=== PATIENT | male | born 1960 | race Caucasian/White ===

== ENCOUNTER 2019-04-24 15:30 | Emergency (ER) | payer OTHER ==
[2019-04-24] MEDS ORDERED: ONDANSETRON 4 MG/2 ML VIAL IVPUSH ONE (16:02)
--- NOTE | 2019-04-24 16:03 | PDOC ---
Rapid Medical Evaluation Time Seen by Provider: 04/24/19 16:00 Medical Evaluation: 04/24/19 16:00 HPI: Weak and Vomiting since yesterday PE: Slumped over in wheel chair with emesis bag ORDERS: Labs and Zofan Discharge Disposition - Diagnosis Nausea and vomiting - Referrals - Patient Instructions - Post Discharge Activity
[2019-04-24 16:05] VITALS: TEMP 98; BMI 27.8
[2019-04-24 17:03] LABS: BASO % 0.8 % (0-2.0); EOS % 2.3 % (0-4.5); HEMOGLOBIN 17.5 GM/dL (11.7-16.9); LYMPH % 20.6 % (8-40); MCH 31.9 pg (25.7-33.7); MCHC 34.3 g/dl (32.0-35.9); MONO % 7.6 % (3.8-10.2); NEUT % 68.7 % (42.8-82.8); PLATELET COUNT 226 K/MM3 (134-434); RBC 5.49 M/mm3 (4.00-5.60); RDW 13.9 % (11.9-15.9); WHITE BLOOD COUNT 8.7 K/mm3 (4.0-10.0)
[2019-04-24] MEDS ORDERED: FAMOTIDINE 20 MG/50 ML IVPB 20 MG/50 ML MG IVPB ONE ×2 (17:12→17:16)
[2019-04-24] MEDS ORDERED: SODIUM CHLORIDE 1,000 ML IV STA (17:12)
[2019-04-24] MEDS ORDERED: LACTATED RINGERS SOLUTION 1000 ML INFUS.BAG IV ONE (17:20)
[2019-04-24 17:31] LABS: ALBUMIN 4.1 g/dl (3.4-5.0); ALK PHOS 105 U/L (45-117); ANION GAP 14 MMOL/L (8-16); BILIRUBIN,TOTAL 0.9 mg/dL (0.2-1); BLOOD UREA NITROGEN 24.2 mg/dL (7-18); CHLORIDE 99 mmol/L (98-107); CO2 26 mmol/L (21-32); GLUCOSE,RANDOM 240 mg/dL (74-106); LIPASE 61 U/L (73-393); SGOT/AST 8 U/L (15-37); SGPT/ALT 20 U/L (13-61); SODIUM 138 mmol/L (136-145); TOT PROT 8.2 g/dl (6.4-8.2)
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
[2019-04-24 18:22] LABS: URINE APPEARANCE CLEAR; URINE BILIRUBIN NEGATIVE (NEGATIVE); URINE COLOR YELLOW; URINE GLUCOSE (UA) >=1000 (NEGATIVE); URINE KETONE 40 mg/dl (NEGATIVE); URINE NITRITE NEGATIVE (NEGATIVE); URINE PROTEIN 100 (NEGATIVE); URINE UROBILINOGEN 0.2 mg/dL (0.2-1.0)
[2019-04-24 18:23] LABS: URINE LEUK ESTERASE NEGATIVE (NEGATIVE)
[2019-04-24] MEDS ORDERED: METOCLOPRAMIDE HCL INJECTION 10 MG/2 ML VIAL IVPB ONE (18:34)
[2019-04-24] MEDS ORDERED: METOCLOPRAMIDE HCL INJECTION 10 MG/2 ML VIAL ONE (18:37)
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
[2019-04-24 20:53] VITALS: BP 149/81; PULSE 67
--- NOTE | 2019-04-25 10:27 | EKG ---
Test Reason : Blood Pressure : / mmHG Vent. Rate : 083 BPM Atrial Rate : 083 BPM P-R Int : 112 ms QRS Dur : 098 ms QT Int : 404 ms P-R-T Axes : 037 063 070 degrees QTc Int : 474 ms POOR DATA QUALITY, INTERPRETATION MAY BE ADVERSELY AFFECTED NORMAL SINUS RHYTHM NORMAL ECG NO PREVIOUS ECGS AVAILABLE Confirmed by LEON BLANK MD ([id number]) on 04/25/2019 10:26:35 AM Referred By: Confirmed By:LEON BLANK MD
== END 2019-04-24 20:55 | disposition home or self-care (01) ==
LOC: JER 15:30
PROC: 3E033GC Introduction of Other Therapeutic Substance into Peripheral Vein, Percutaneous Approach (ICD-10-PCS; principal; 2019-04-24)
PROC: 3E0337Z Introduction of Electrolytic and Water Balance Substance into Peripheral Vein, Percutaneous Approach (ICD-10-PCS; 2019-04-24)
DX: R11.2 Nausea with vomiting, unspecified (principal); I10 Essential (primary) hypertension; E78.5 Hyperlipidemia, unspecified; E11.9 Type 2 diabetes mellitus without complications; G89.29 Other chronic pain
CPT/HCPCS: 36415; 80053; 81003; 82550; 83690; 84484; 85025; 93005; 93010; 99284-25; J7030